=== PATIENT | female | born 1945 | race Caucasian/White ===

== ENCOUNTER → 2017-05-03 | Day surgery (SDC) | payer OTHER ==
[~2017-05-03] MED LIST: LEVOXYL112 MC1 PO; LOVASTATIN20 M1 PO; NEXIUM PO; PRINIVIL5 MG PO
--- NOTE | ~2017-05-03 | OR ---
Unit #: [id number] #: [id number] Patient: ALEX WOMACK [id number] [address] [id number] MR#: [id number] NAME: ALEX WOMACK. ROOM: Date of Procedure: 05/03/2017 Admission Date: 05/03/2017 Surgeon: Vj Grissom M.D. : 1945 Attending Physician: Vj Grissom M.D. Primary Care Physician: Michael Lee M.D. OPERATIVE REPORT PREOPERATIVE DIAGNOSES Radiculopathy, spinal stenosis, back pain. POSTOPERATIVE DIAGNOSES Radiculopathy, spinal stenosis, back pain. PROCEDURE PERFORMED Transforaminal epidural steroid injection with intravenous sedation and fluoroscopic guidance for needle localization. INDICATIONS FOR PROCEDURE A 71-year-old female with left lower extremity footdrop, positive EMG findings of significant neuroforaminal narrowing at left L5-S1 level. She failed to settle with conservative treatments, so plan is to give a trial of transforaminal epidural steroid injection. We will see if this will better address those symptoms. Risks and benefits all have been reviewed. DESCRIPTION OF PROCEDURE The patient was placed in a prone position. Standard monitors were applied. 2 mg of Versed were given for sedation and anxiolysis, which were adequate. Vital signs remained stable. Sterile prep and drape then of the lumbosacral area was performed. The skin to the left of midline at the L5-S1 level was localized with 1% lidocaine. A long 22-gauge Quincke point spinal needle was then advanced via left lateral approach with biplanar fluoroscopic guidance to bring the needle tip within the left L5-S1 neural foramina. After confirming proper positioning with fluoroscopy and radiographic contrast, 80 mg of Depo-Medrol and 1 mL of 0.25% bupivacaine were deposited. The patient tolerated the procedure otherwise well and was discharged to the recovery room in stable condition. Dictated by... Vj Grissom M.D. LHP/modl TD: 05/03/2017 23:34 JOB #: [id number] Unit #: [id number] #: [id number] Patient: ALEX WOMACK OPERATIVE REPORT Page 1 of 1 X Vj Grissom MD X PROCEDURE OPERATIVE NOTE
== END | disposition home or self-care (01) ==
LOC: CCSC 09:14
DX: M54.17 Radiculopathy, lumbosacral region (principal); M48.07 Spinal stenosis, lumbosacral region; M43.17 Spondylolisthesis, lumbosacral region; I10 Essential (primary) hypertension
CPT/HCPCS: J1040; J2250